=== PATIENT | male | born 1995 | race African-American/Black ===

== ENCOUNTER 2017-01-18 12:50 | Emergency (ER) | payer SELFPAY ==
--- NOTE | 2017-01-18 12:56 | PDOC ---
History of Present Illness - General Chief Complaint: Urinary Problem Stated Complaint: CLOUDY WHITE DISCHARGE FROM [facility] - History of Present Illness Initial Comments: 01/18/17 13:08 21yo M hx asthma, gonorrhea p/w penile DC for 1 month that resolved 1 week ago. Reports DC was cloudy and white. Came in today because he was concerned it was an STD. States he was referred to a clinic that did not take his insurance and thus he presented here. Denies other sxs of pain, fevers, dysuria, frequency, ulcers. Last sexually active 3 months ago, had unprotected sex, reports he was tested with his partner more than 6 months ago and they were both negative. Pt offered HIV test today but declines as he does not want to wait for the result. Past History - Past Medical History Allergies/Adverse Reactions: Allergies Allergy/AdvReac Type Severity Reaction Status Date / Time No Known Allergies Allergy Verified 01/18/17 12:55 Home Medications: Ambulatory Orders Albuterol Sulfate Inhaler - [Ventolin Hfa Inhaler -] 1 - 2 inh PO QID 01/18/17 Review of Systems - Review of Systems Comments:: 01/18/17 13:33 GENERAL/CONSTITUTIONAL: No fever or chills. No weakness. HEAD, EYES, EARS, NOSE AND THROAT: No change in vision. No ear pain or discharge. No sore throat. GASTROINTESTINAL: No nausea, vomiting, diarrhea or constipation. GENITOURINARY: No dysuria, frequency, or change in urination. CARDIOVASCULAR: No chest pain or shortness of breath. RESPIRATORY: No cough, wheezing, or hemoptysis. MUSCULOSKELETAL: No joint or muscle swelling or pain. No neck or back pain. SKIN: No rash NEUROLOGIC: No headache, vertigo, loss of consciousness, or change in strength/ sensation. ENDOCRINE: No increased thirst. No abnormal weight change. HEMATOLOGIC/LYMPHATIC: No anemia, easy bleeding, or history of blood clots. ALLERGIC/IMMUNOLOGIC: No hives or skin allergy. *Physical Exam - Physical Exam Comments: 01/18/17 13:35 GENERAL: Awake, alert, and fully oriented, in no acute distress HEAD: No signs of trauma EYES: PERRLA, EOMI, sclera anicteric, conjunctiva clear ENT: Auricles normal inspection, hearing grossly normal, nares patent, oropharynx clear without exudates. Moist mucosa NECK: Normal ROM, supple, no lymphadenopathy, JVD, or masses LUNGS: Breath sounds equal, clear to auscultation bilaterally. No wheezes, and no crackles HEART: Regular rate and rhythm, normal S1 and S2, no murmurs, rubs or gallops ABDOMEN: Soft, nontender, normoactive bowel sounds. No guarding, no rebound. No masses : normal genitalia, no ttp, no lesions noted, no inguinal LAD, no urethral DC. Normal cremaster reflex EXTREMITIES: Normal range of motion, no edema. No clubbing or cyanosis. No cords, erythema, or tenderness NEUROLOGICAL: Normal speech, cranial nerves intact, negative pronator drift, 5/ 5 strength in all 4 extremities, normal sensation to light touch in all 4 extremities, normal cerebellar exam, normal gait, normal reflexes and tone SKIN: Warm, Dry, normal turgor, no rashes or lesions noted. Medical Decision Making - Medical Decision Making 01/18/17 13:36 21-year-old male presents with resolved penile discharge. Given unprotected sex 3 months ago, will treat for urethritis. Also will send cultures for chlamydia and gonorrhea. Counseled the patient to refrain from sexual activity for 7 days after his treatment here. Will treat with one-time dose of IM ceftriaxone and 1 time dose of azithromycin PO. I discussed the physical exam findings, ancillary test results and final diagnoses with the patient. I answered all of the patient's questions. The patient was satisfied with the care received and felt comfortable with the discharge plan and treatment plan. The patient will call their primary care physician within 24 hours to arrange follow-up and will return to the Emergency Department with any new, persistent or worsening symptoms. *DC/Admit/Observation/Transfer Diagnosis at time of Disposition: Urethritis - Discharge Dispostion Disposition: HOME Condition at time of disposition: Stable Admit: No - Referrals - Patient Instructions Printed Discharge Instructions: DI for Urethritis Additional Instructions: Call your insurance company to find a primary provider who accepts your insurance, and follow-up with a primary doctor within 1 week. Refrain from any oral, anal or vaginal intercourse for 7 days following the treatment you received here in the emergency department. Return to emergency department if you have any new, worsening or concerning symptoms. - Post Discharge Activity - Attestations Physician Attestion: 01/18/17 13:40 Dr. Yordan Leahy MD, attest that this document has been prepared under my direction and personally reviewed by me in its entirety. I further attest, that it accurately reflects all work, treatment, procedures and medical decision -making performed by me.
[2017-01-18 12:59] VITALS: BP 123/73; PULSE 83; TEMP 98.1; BMI 32.8
[2017-01-18 13:27] LABS: URINE APPEARANCE CLEAR; URINE BILIRUBIN NEGATIVE (NEGATIVE); URINE COLOR YELLOW; URINE GLUCOSE (UA) NEGATIVE (NEGATIVE); URINE KETONE NEGATIVE (NEGATIVE)
[2017-01-18 13:28] LABS: PH,URINE 6.5 (4.5-8); URINE BLOOD Trace-intact (NEGATIVE); URINE LEUK ESTERASE TRACE (NEGATIVE); URINE NITRITE NEGATIVE (NEGATIVE); URINE PROTEIN 2+ (NEGATIVE)
[2017-01-18 13:29] LABS: URINE BACTERIA MODERATE /hpf (NEGATIVE)
[2017-01-18] MEDS ORDERED: AZITHROMYCIN 500 MG TABLET PO ONE (13:34)
[2017-01-18] MEDS ORDERED: AZITHROMYCIN 250 MG TABLET ONE (13:36)
== END 2017-01-18 13:50 | disposition home or self-care (01) ==
LOC: FER 12:50
DX: N34.2 Other urethritis (principal); J45.909 Unspecified asthma, uncomplicated
CPT/HCPCS: 36415; 81003; 81015; 87086; 87491; 87591; 99283-25

== ENCOUNTER 2018-06-25 04:23 | Emergency (ER) | payer SELFPAY ==
[2018-06-25 04:31] VITALS: BP 125/88; PULSE 79; TEMP 98.6; BMI 37.9
[2018-06-25] MEDS ORDERED: predniSONE 20 MG TABLET (UD) ONE (04:33)
[2018-06-25] MEDS ORDERED: KETOROLAC TROMETHAMINE 60 MG/2 ML VIAL ONE (04:33)
[2018-06-25] MEDS ORDERED: KETOROLAC TROMETHAMINE 60 MG/2 ML VIAL IM ONE (04:33)
[2018-06-25] MEDS ORDERED: predniSONE 20 MG TABLET (UD) PO ONE (04:34)
--- NOTE | 2018-06-25 04:37 | PDOC ---
History of Present Illness - General Chief Complaint: Sore Throat Stated Complaint: SORE THROAT Time Seen by Provider: 06/25/18 04:33 History Source: Patient Exam Limitations: No Limitations - History of Present Illness Initial Comments: 06/25/18 04:34 This is a 22-year-old male who comes in complaining of a sore throat 3 days. Patient denies any fevers or chills. Patient said that he had contact with a person who was sick with similar symptoms prior to his developing symptoms. Patient otherwise denied any fevers, cough, congestion or any other complaints. Allergies: as per nursing notes Past Medical History: none Social history: Lives with family. No smoking. No alcohol. No illicit drugs. Surgical history: None General: No fevers or chills, no weakness, no weight loss HEENT: No change in vision. + sore throat,. No ear pain CardioVascular: no chest discomfort. No shortness of breath Respiratory:No cough, or wheezing. Gastrointestinal: no nausea, vomiting, diarrhea or constipation, No rectal bleeding Genitourinary: No dysuria, hematuria, or frequency Musculoskeletal: No joint or muscle pain or swelling Neurologic: No headache, vertigo, dizziness or loss of consciousness Psychiatric: nor depression Skin: No rashes or easy bruising Endocrine: no increased thirst or abnormal weight change Allergic: no skin or latex allergy All other systems reviewed and normal GENERAL: The patient is awake, alert, and fully oriented, in no acute distress. Throat: There is some erythema of the posterior oropharynx otherwise there is tonsils are normal there is no exudate. Neck is supple and there is no submandibular lymphadenopathy. HEAD: Normal with no signs of trauma. EYES: Pupils equal, round and reactive to light, extraocular movements intact, sclera anicteric, conjunctiva clear. EXTREMITIES:atraumatic, Normal range of motion, no edema. NEUROLOGICAL: Normal speech, normal gait. PSYCH: Normal mood, normal affect. SKIN: Warm, Dry, normal turgor, no rashes or lesions noted. Assessment and plan: This is a 22-year-old male with a viral pharyngitis. Patient does not meet criteria for bacterial strep as there is no exudate and no lymphadenopathy and no fevers. Patient reassured given some prednisone and Toradol and discharged home Past History - Past Medical History Allergies/Adverse Reactions: Allergies Allergy/AdvReac Type Severity Reaction Status Date / Time No Known Allergies Allergy Verified 06/25/18 04:24 Home Medications: Ambulatory Orders NK [No Known Home Medication] 06/25/18 Asthma: Yes COPD: No - Suicide/Smoking/Psychosocial Hx Smoking History: Never smoked Have you smoked in the past 12 months: No Hx Alcohol Use: Yes (OCASIOANL) Drug/Substance Use Hx: No *Physical Exam - Vital Signs Last Vital Signs Temp Pulse Resp BP Pulse Ox 98.6 F 79 18 125/88 99 06/25/18 04:24 06/25/18 04:24 06/25/18 04:24 06/25/18 04:24 06/25/18 04:24 *DC/Admit/Observation/Transfer Diagnosis at time of Disposition: Viral pharyngitis - Discharge Dispostion Disposition: HOME Condition at time of disposition: Stable Decision to Admit order: No - Referrals - Patient Instructions Additional Instructions: Tylenol or Motrin as needed for pain. Return to the emergency department immediately with ANY new, persistent or worsening symptoms. Continue any medications as previously prescribed by your physician. You should follow up with your primary doctor as soon as possible regarding today's emergency department visit. . Please make sure your doctor reviews the results of your emergency evaluation. Thank you for coming to the Emergency Department today for your care. It was a pleasure to see you today. Please note that your evaluation is INCOMPLETE until you follow-up with your doctor. - Post Discharge Activity
== END 2018-06-25 04:47 | disposition home or self-care (01) ==
LOC: FER 04:23
PROC: 3E0233Z Introduction of Anti-inflammatory into Muscle, Percutaneous Approach (ICD-10-PCS; principal; 2018-06-25)
DX: J02.8 Acute pharyngitis due to other specified organisms (principal); B97.89 Other viral agents as the cause of diseases classified elsewhere; J45.909 Unspecified asthma, uncomplicated
CPT/HCPCS: 99281-25

== ENCOUNTER 2020-05-06 17:44 | Emergency (ER) | payer OTHER ==
[2020-05-06 17:47] VITALS: BP 121/63; PULSE 98; TEMP 98.6; BMI 38.3
== END 2020-05-06 18:15 | disposition home or self-care (01) ==
LOC: FER 17:44
DX: B35.0 Tinea barbae and tinea capitis (principal)
CPT/HCPCS: 99282-25

== ENCOUNTER 2020-05-25 15:11 | Emergency (ER) | payer OTHER ==
[2020-05-25 15:21] VITALS: BP 131/76; PULSE 81; TEMP 99; BMI 39.1
[2020-05-25] MEDS ORDERED: AZITHROMYCIN 500 MG TABLET PO ONE (15:32)
[2020-05-25] MEDS ORDERED: AZITHROMYCIN 250 MG TABLET ONE (15:35)
[2020-05-25] MEDS ORDERED: cefTRIAXone SODIUM 1 GM VIAL ONE (15:36)
[2020-05-25 16:08] LABS: EPITHELIAL CELLS RARE /hpf
== END 2020-05-25 16:03 | disposition home or self-care (01) ==
LOC: FER 15:11
DX: N34.1 Nonspecific urethritis (principal)
CPT/HCPCS: 36415; 81003; 81015; 87086; 87491; 87591; 99284-25

== ENCOUNTER 2021-01-06 16:11 | Emergency (ER) | payer OTHER ==
[2021-01-06] MEDS ORDERED: IBUPROFEN 600 MG TABLET (FP) PO ONE ×2 (16:21→16:32)
[2021-01-06 16:35] VITALS: BP 114/92; PULSE 81; TEMP 98.9; BMI 39.1
== END 2021-01-06 16:47 | disposition home or self-care (01) ==
LOC: FER 16:11
DX: J02.0 Streptococcal pharyngitis (principal)
CPT/HCPCS: 87651; 87804; 87807; 99283-25; C9803; U0003; U0005

== ENCOUNTER 2021-01-14 12:40 | Emergency (ER) | payer OTHER ==
[2021-01-14 12:55] VITALS: BP 133/76; PULSE 93; TEMP 97.6; BMI 39.1
== END 2021-01-14 13:19 | disposition home or self-care (01) ==
LOC: FER 12:40
DX: A60.01 Herpesviral infection of penis (principal)
CPT/HCPCS: 87252; 99283-25

== ENCOUNTER 2023-03-20 01:37 | Emergency (ER) | payer OTHER ==
[2023-03-20 01:44] VITALS: BP 139/87; PULSE 114; RESP 18; TEMP 98.3; BMI 39.3
[2023-03-20] MEDS ORDERED: ALBUTEROL SO4 2.5/IPRATROPIUM 0.5 INH SOL 3 ML VIAL.NEB. NEB ONE (01:57)
[2023-03-20] MEDS ORDERED: DEXAMETHASONE 4 MG TABLET (FP) ONE (01:57)
[2023-03-20] MEDS: DEXAMETHASONE 4 MG TABLET (FP) PO ONE (02:01)
[2023-03-20] MEDS: ALBUTEROL SO4 2.5/IPRATROPIUM 0.5 INH SOL 3 ML VIAL.NEB. NEB ONE (02:01)
== END 2023-03-20 02:52 | disposition home or self-care (01) ==
LOC: FER 01:37
PROC: 3E0F7GC Introduction of Other Therapeutic Substance into Respiratory Tract, Via Natural or Artificial Opening (ICD-10-PCS; principal; 2023-03-20)
DX: J45.901 Unspecified asthma with (acute) exacerbation (principal)
CPT/HCPCS: 99283-25